=== PATIENT | male | born 1960 | race African-American/Black ===

== ENCOUNTER → 2016-12-22 | Outpatient (CLI) | payer OTHER ==
[~2016-12-22] MED LIST: ASPIRIN 325 MG TABLET ONE; DIAZEPAM 10 MG TABLET. ONE; HEPARIN SODIUM 5,000 UNIT/ML VIAL for PCVC. ONE; HEPARIN for ARTERIAL LINE 1,500 ML ONE; IODIXANOL 270 MG/ML 100 ML VIAL. ONE; IOHEXOL 350 MG/ML 100 ML VIAL. ONE; IV NORMAL SALINE 1000ML BAG 1,000 ML ONE; IV NORMAL SALINE 500ML BAG 0 ML ONE; LIDOCAINE 1% Multi-Dose 20 ML VIAL. ONE; MIDAZOLAM HCL/PF 2 MG/2 ML VIAL. ONE; fentaNYL PF VIAL 100 MCG/2 ML VIAL ONE; hydrALAZINE 20 MG/ML VIAL. ONE
--- NOTE | 2016-12-22 11:01 | PCVCINTER ---
EXAM: 1. AORTOGRAM AND BILATERAL LOWER EXTREMITY RUNOFF ANGIOGRAM 2. BILATERAL RENAL ANGIOGRAPHY 3. LEFT EXTERNAL ILIAC ARTERY ANGIOPLASTY INDICATION: Peripheral arterial disease. Coronary artery disease. Leg pain. Hypertension. Renal atherosclerosis. PROCEDURE: Procedure and risks of angiography intervention is appropriate including limb loss stroke and were discussed with the patient's family and consent obtained. The patient's left groin was prepped abnormal sterile fashion. IV conscious sedation was used to procedure with appropriate monitoring for 90 minutes. Ultrasound was used to interrogate the left groin and showed the left common femoral artery to be patent. A permanent spot film was obtained. Under ultrasound guidance access into the left common femoral artery was obtained and a 5 Wallisian sheath was placed. Through this a 5 Wallisian flush catheter was placed into the abdominal aorta at the level of the renal arteries and AP aortogram was performed. Catheter was positioned at the aortic bifurcation and both oblique views of the pelvis were obtained. Catheter was positioned into the left external iliac artery and right leg runoff angiography was performed. Catheter was exchanged for a visceral catheter was placed into the right renal arteries and right renal angiograms obtained. Catheter was placed into the the left renal arteries and left renal angiograms were obtained. Catheter was advanced to the level of the right common iliac artery and right leg runoff angiography was obtained. Patient was given 3000 units of heparin. Angioplasty of the right external iliac artery was carried out with a 7 x 4 and 8 x 4 PowerFlex [employer] catheters. Follow-up angiogram was performed. Dr. Rosa joined the procedure and he performed coronary angiography. Please see his separate dictation for full details. Sheath was removed and hemostasis obtained using the Mynx device. No immediate complications. FINDINGS: Aortogram: There is one right and one left renal artery. Infrarenal abdominal aorta is patent with mild plaque. Stents are noted in the distal aorta kissing-type fashion and are patent. Pelvis: Bilateral common iliac artery stents extend into the distal aorta and show good patency. The left common and external iliac artery stents are stent grafts. There is moderate restenosis in the mid left external iliac artery. The right external iliac artery is patent. The left internal iliac artery is occluded. The right internal iliac artery is patent. Right renal artery: Minimal plaque proximal vessel without evidence of significant stenosis. Left renal artery: Minimal plaque proximal vessel without evidence of significant stenosis. Right leg: The common femoral and profunda femoral arteries are patent. There is interval development of segmental occlusion in the mid superficial femoral artery. The popliteal artery is patent. The trifurcation infrapopliteal vessels are only faintly visualized because of the more proximal occlusion and are difficult to further evaluate. Left leg: Common femoral and profunda femoral arteries are patent. The superficial femoral artery and popliteal arteries show good patency. The anterior tibial and peroneal arteries are occluded. Previous stent in the distal tibioperoneal trunk and proximal posterior tibial artery shows good patency. The posterior tibial artery is patent into the foot. Left external iliac artery: Following procedure as above vessel is widely patent. IMPRESSION: Previous distal aortic and bilateral common iliac artery stents are maintaining good patency. Moderate stenosis within mid left external iliac artery stents was treated with angioplasty with good patency restored. Interval development of segmental occlusion right superficial femoral artery. Patient will return in the near future for antegrade access into the right common femoral artery for correction of this. follow up LOC:[id number]
== END | disposition home or self-care (01) ==
LOC: PCVCINTER 07:45
PROVIDERS: ATTEND Internal Medicine
DX: I70.213 Atherosclerosis of native arteries of extremities with intermittent claudication, bilateral legs (principal); I25.10 Atherosclerotic heart disease of native coronary artery without angina pectoris; I70.1 Atherosclerosis of renal artery
CPT/HCPCS: 36245; 36252; 37220; 75716; 76937; 93458; 99152; 99153; C1725; C1751; C1760; C1769; C1894; J0360; J0690; J1644; J2250; J3010; J7030; Q9967; J7040